=== PATIENT | male | born 1965 | race African-American/Black ===

== ENCOUNTER 2020-04-23 14:13 | Outpatient (CLI) | payer OTHER ==
--- NOTE | 2020-04-23 15:56 | ULT ---
VENOUS DOPPLER ULTRASOUND OF THE LEFT LOWER EXTREMITY: 04/23/20 HISTORY: Left calf pain and edema. TECHNIQUE: Al scale ultrasound with color flow and spectral Doppler imaging of the deep venous system of the l eft lower extremity is performed. FINDINGS: There is good flow, compression, and augmentation noted in the left common femoral, femoral, deep fem oral, popliteal, posterior tibial and greater saphenous veins. IMPRESSION: No evidence of DVT in the left lower extremity. POS: AH
== END 2020-04-23 14:14 | disposition home or self-care (01) ==
LOC: ULT 14:13
PROVIDERS: ATTEND Student in an Organized Health Care Education/Training Program
DX: R60.0 Localized edema (principal)

== ENCOUNTER 2020-06-06 11:21 | Emergency (ER) | payer OTHER | END 2020-06-06 11:40 | disposition home or self-care (01) | LOC: ERS 11:21 | DX: U07.1 COVID-19 (principal); E03.9 Hypothyroidism, unspecified; I10 Essential (primary) hypertension; F17.220 Nicotine dependence, chewing tobacco, uncomplicated; Z86.718 Personal history of other venous thrombosis and embolism | CPT/HCPCS: 99283 ==

== ENCOUNTER 2022-09-22 21:45 | Emergency (ER) | payer BC ==
[2022-09-22] MEDS ORDERED: Acetaminophen 500 MG TAB ONE (22:27)
[2022-09-22] MEDS ORDERED: Ibuprofen 800 MG TAB ONE (22:27)
[2022-09-22 23:42] LABS: SARS-CoV-2 NAA Rapid Test DETECTED (NotDetected)
== END 2022-09-23 00:09 | disposition home or self-care (01) ==
LOC: ERS 21:45
DX: U07.1 COVID-19 (principal); I10 Essential (primary) hypertension; E03.9 Hypothyroidism, unspecified
CPT/HCPCS: 71045

== ENCOUNTER 2024-11-10 15:16 | Emergency (ER) | payer BC ==
[2024-11-10] MEDS ORDERED: HYDROcodone/Acetaminophen 10/325 mg Tablet ONE (16:57)
== END 2024-11-10 17:07 | disposition home or self-care (01) ==
LOC: ERS 15:16
DX: J11.1 Influenza due to unidentified influenza virus with other respiratory manifestations (principal); I10 Essential (primary) hypertension
CPT/HCPCS: 87428; 99283